=== PATIENT | male | born 1950 | race Caucasian/White ===

== ENCOUNTER → 2022-04-13 | Outpatient (CLI) | payer MEDICARE ==
--- NOTE | 2022-04-15 14:35 | CT ---
EXAMINATION TYPE: CT abdomen pelvis w con DATE OF EXAM: 04/13/2022 COMPARISON: None INDICATION: Malignant neoplasm of prostate DLP: 1179 mGycm, Automated exposure control for dose reduction was used. CONTRAST: 100 mL of Isovue 300. Study performed without Oral Contrast TECHNIQUE: Axial images were obtained from above the diaphragm to the pubic rami in the axial plane a t 5 mm thick sections. Reconstructed images are reviewed on the computer in the coronal plane. FINDINGS: Limited CT sections are obtained the lung bases. The lung bases are clear. CT ABDOMEN: Liver: Atelectasis is present within the medial right lobe liver. Spleen: Normal Pancreas: Normal Adrenal glands: The adrenal glands are normal. Gallbladder: Normal Kidneys: No masses are evident. No hydronephrosis is present. Small cortical renal cyst is on the l ateral mid left kidney. Delayed images were obtained through the kidneys, which remain unremarkable. Aorta: Vascular calcification is within the aorta. Inferior vena cava: Normal. CT PELVIS: Loops of bowel within the abdomen and pelvis are normal. The study is without oral contrast limit ing bowel evaluation. Appendix: Normal as visualized. Urinary bladder: Inferior impression from the enlarged prostate is present. The left seminal vesicle appears enlarged compared to the right. Genitourinary structures: Prostate is prominent and lobular mass extension into the seminal vesicles. This has mild inferior impression on the urinary bladder. Osseous structures: There is a 1.0 cm sclerotic area within the medial left iliac wing. This is adjac ent to a lytic lucency which is nonspecific. Facet degenerative changes are in the lower lumbar spine greater on the right. IMPRESSIONS: 1. Enlarged lobular prostate. Consider extension towards the seminal vesicles, greater on the left. 2. Sclerotic lesion adjacent simple appearing lytic area in the left medial iliac wing. Metastasis is not excluded. Additional areas suspicious for metastases are not identified.
== END | disposition home or self-care (01) ==
LOC: RADCTMAIN 17:32
PROVIDERS: ATTEND Urology
DX: C61 Malignant neoplasm of prostate (principal); M89.9 Disorder of bone, unspecified
CPT/HCPCS: 82565; 84520; 74177; 36415; Q9967

== ENCOUNTER → 2022-05-04 | Outpatient (CLI) | payer MEDICARE ==
--- NOTE | 2022-05-05 10:45 | NM ---
EXAMINATION TYPE: NM bone scan whole body DATE OF EXAM: 05/04/2022 COMPARISON: CT abdomen and pelvis 04/13/2022 HISTORY: Prostate cancer Delayed whole-body scanning was performed following the injection of 23.3 mCi Tc 99m MDP. Images acq uired 3.5 hours post injection. FINDINGS: There is intense abnormal uptake involving the cervical spine and lower lumbar spine. More mild to mo derate changes seen throughout the thoracic and lumbar spine which likely is degenerative. Abnormal uptake involving the knee and feet likely postarthritic. Remaining osseous structures demons trate no definite abnormal uptake. IMPRESSION: 1. Intense abnormal uptake involving the cervical spine with no x-ray correlation available. Given th e intensity of uptake recommend x-ray correlation to exclude possibility of metastases. 2. Intense abnormal uptake involving the lower lumbar spine. Likely in the basis of degenerative jeong ge relative to the recent CT scan
== END | disposition home or self-care (01) ==
LOC: RADNMMAIN 10:52
PROVIDERS: ATTEND Urology
DX: C61 Malignant neoplasm of prostate (principal)
CPT/HCPCS: 78306; A9503

== ENCOUNTER → 2022-05-17 | Outpatient (CLI) | payer MEDICARE ==
--- NOTE | 2022-05-18 14:02 | XR ---
Cervical spine Limited HISTORY: Prostate carcinoma, C 61, abnormal bone scan Correlation to bone scan 05/04/2022 There is reversal the normal cervical spinal lordosis loss of disc height is present at intervertebra l levels. There is hypertrophic change, sclerosis. Facet arthropathy changes are also present. Cervic al vertebral bodies show preserved height. Prevertebral soft tissues within normal limits. Soft tissu e calcifications may be vascular. IMPRESSION: Degenerative disc disease, facet arthropathy. Additional findings above. Metastasis to ce rvical spine is not suspected.
== END | disposition home or self-care (01) ==
LOC: RADXRMAIN 18:20
PROVIDERS: ATTEND Urology
DX: C61 Malignant neoplasm of prostate (principal); M47.812 Spondylosis without myelopathy or radiculopathy, cervical region; M50.30 Other cervical disc degeneration, unspecified cervical region
CPT/HCPCS: 72040

== ENCOUNTER → 2023-04-03 | Outpatient (CLI) | payer MEDICARE ==
--- NOTE | 2023-04-03 20:01 | MR ---
EXAMINATION TYPE: MR Prostate wo/w con DATE OF EXAM: 04/03/2023 9:42 AM COMPARISON: None. CLINICAL INDICATION:Male, 72 years old with history of C61; Increased PSA, hx of biopsy x 20 years ag o TECHNIQUE: Multi-planar, multi-sequence imaging of the pelvis is performed prior to and following the uncomplicated administration of bolus intravenous gadolinium. CONTRAST: 7.5 Gadavist Interpretive Criteria: PI-RADS v2.1 SERUM PSA: 33.1 on 03/25/2022. 18.5 on 01/24/2019. SURGICAL PATHOLOGY: No data available. FINDINGS: Prostatic dimensions: 4.8 x 4.1 x 3.0 cm. "Bullet" Volume:38.64 (PSA density=0.86 ng/mL/mL) CENTRAL GLAND (Central and Transition Zones/CZ+TZ): Multiple bilateral, heterogenous appearing hypertrophic stromal nodules, without suspicious lesion. ( PI-RADS 2) PERIPHERAL ZONE (PZ): Limited evaluation secondary to bowel gas in the rectum. Extruded right lateral BPH nodule. Bilateral linear, indistinct wedgelike areas of low ADC, and low T2 signal, No evidence of masslike a bnormality, or localized perfusional hypervascularity, to further suggest a focus of clinically signi ficant prostate cancer. (PI-RADS 2) SEMINAL VESICLES (SV): Symmetric and unremarkable. PERIPROSTATIC TISSUES: Unremarkable. LYMPH NODES: No enlarged pelvic lymph node. REMAINING PELVIS: Bladder wall is within normal limits given distention. No abnormal free or organized intrapelvic fluid collection. No pathologic bowel dilation or mural thickening. Bilateral fat containing inguinal hernias. OSSEOUS STRUCTURES: No suspicious osseous abnormality. IMPRESSION: 1. No specific features for high-risk prostate cancer. Maximum PI-RADS score: 2.
== END | disposition home or self-care (01) ==
LOC: RADMRIMAIN 08:41
PROVIDERS: ATTEND Radiology Radiation Oncology
DX: C61 Malignant neoplasm of prostate (principal)
CPT/HCPCS: 72197; A9585

== ENCOUNTER → 2023-05-05 | Outpatient (CLI) | payer MEDICARE ==
--- NOTE | 2023-05-07 11:31 | PE ---
EXAMINATION TYPE: PET CT fusion skull to thigh DATE OF EXAM: 05/05/2023 CLINICAL INDICATION:Male, 72 years old with history of C61; TECHNIQUE: Following the intravenous administration of 5.67 mCi of Ga-68 Illuccix (PSMA), whole bod y images are performed from the skull base to the midthigh. Images are reviewed on the computer in t he coronal, axial, and sagittal planes. Reconstructed rotating images are created on independent wor kstation and reviewed on the computer. A non-contrast CT is performed in conjunction with the PET s can. CT DLP: 651 mGycm, Automated exposure control for dose reduction was used. COMPARISON: CT 01/11/2022, PET/CT None, MRI 04/03/2023, nuclear bone scan 04/26/2022 FINDINGS: Mediastinal SUV mean is 0.56. Hepatic parenchyma SUV mean is 2.22. SKULL BASE AND NECK: No suspicious radiotracer activity. CHEST, MEDIASTINUM, AND HILAR REGION: No suspicious radiotracer activity. ABDOMEN AND PELVIS: No suspicious radiotracer activity. MUSCULOSKELETAL STRUCTURES: No suspicious radiotracer activity. OTHER CT: Atherosclerosis of the carotid bifurcations and arterial vasculature. Mild bilateral gyneco mastia changes. Mild to moderate coronary artery atherosclerosis. Hepatic cyst. Fat-containing buccal hernia. Scattered colonic diverticula. Fat-containing inguinal hernias. IMPRESSION: No focal radiotracer uptake within the prostate gland or throughout the exam. Nothing to suggest lakshmi gnancy at this time.
== END | disposition home or self-care (01) ==
LOC: RADPETMAIN 14:39
PROVIDERS: ATTEND Urology
DX: C61 Malignant neoplasm of prostate (principal)
CPT/HCPCS: 78815; A9596

== ENCOUNTER 2024-07-09 11:43 | Day surgery (SDC) | payer MEDICARE ==
[~2024-07-09 11:43] MED LIST: ALPRAZolam 0.25 MG TAB PO PRN; ALPRAZolam 0.5 MG TAB PO PRN; NITROGLYCERIN SL TABS 0.4 MG TAB SUBLINGUAL PRN
[2024-07-09] MEDS: ASPIRIN 325 MG TAB PO ONE (12:13)
[2024-07-09] MEDS: SODIUM CHLORIDE 0.9% 1,000 ML in EMPTY BAG 1 BAG IV SCH (12:13)
[2024-07-09] MEDS: ATORVASTATIN 80 MG TAB PO ONE (12:14)
[2024-07-09 12:19] LABS: Basophils # (A) 0.1 k/uL (0-0.2); Basophils % (A) 1 %; Eosinophils # (A) 0.5 k/uL (0-0.7); Eosinophils % (A) 6 %; HCT 38.6 % (39.0-53.0); HGB 12.4 gm/dL (13.0-17.5); Lymphocytes # (A) 2.1 k/uL (1.0-4.8); Lymphocytes % (A) 25 %; MCH 28.6 pg (25.0-35.0); MCHC 32.2 g/dL (31.0-37.0); MCV 88.8 fL (80.0-100.0); Monocytes # (A) 0.5 k/uL (0-1.0); Monocytes % (A) 6 %; Neutrophils # (A) 4.9 k/uL (1.3-7.7); Neutrophils % (A) 59 %; Platelet Count 346 k/uL (150-450); RBC 4.34 m/uL (4.30-5.90); RDW 14.7 % (11.5-15.5); WBC 8.2 k/uL (3.8-10.6)
[2024-07-09 12:27] VITALS: RESP 16; TEMP 98.5
[2024-07-09 12:45] LABS: African American GFR (CKD) >90 (>60 ml/min/1.73 sqM); Anion Gap 8 mmol/L; Blood Urea Nitrogen 20 mg/dL (9-20); Calcium 9.3 mg/dL (8.4-10.2); Carbon Dioxide 26 mmol/L (22-30); Chloride 107 mmol/L (98-107); Glucose 115 mg/dL (74-99); Non-African American GFR(CKD) 89 (>60 ml/min/1.73 sqM); Potassium 3.9 mmol/L (3.5-5.1); Sodium 141 mmol/L (137-145)
[2024-07-09] MEDS: SODIUM CHLORIDE 0.9% 1,000 ML IV ONE (12:46)
[2024-07-09] MEDS: HEPARIN SODIUM,PORCINE (1 ML) 2,500 UNIT in SODIUM CHLORIDE 0.9% 250 ML IRRIGATION PRN (12:47)
[2024-07-09] MEDS: HEPARIN SODIUM,PORCINE 10,000 UNIT in SODIUM CHLORIDE 0.9% 1,000 ML IRRIGATION PRN (12:47)
[2024-07-09] MEDS: fentaNYL (PF) 50 MCG/1 ML VIAL IVP ONE (12:57)
[2024-07-09] MEDS: MIDAZOLAM 2 MG/2 ML VIAL IVP ONE (12:57)
[2024-07-09] MEDS: LIDOCAINE 1% INJ 10MG/ML (20 ML MDV) SQ ONE (13:29)
[2024-07-09] MEDS: VERAPAMIL SYRINGE (5 MG/10 ML) INTRAARTER ONE (13:30)
[2024-07-09] MEDS: HEPARIN SODIUM 1,000 UN/ML (10ML VL) IVP ONE (13:33)
[2024-07-09] MEDS: CLOPIDOGREL 75 MG TAB PO ONE (13:47)
[2024-07-09] MEDS: NITROGLYCERIN 1000MCG/10ML SYRINGE INTRACORON ONE (13:51)
[2024-07-09] MEDS: IOPAMIDOL-370 100ML BTL INJ ONE ×2 (13:55→14:11)
[2024-07-09] MEDS ORDERED: RX INFO: IV CONTRAST WAS GIVEN 1 EACH MISC MISCELLANE PRN (14:21)
[2024-07-09] MEDS ORDERED: MAG HYDROX/AL HYDROX/SIMETH 30 ML CUP PO PRN (14:21)
[2024-07-09] MEDS ORDERED: ZOLPIDEM 5 MG TAB PO PRN (14:21)
[2024-07-09] MEDS ORDERED: ATROPINE SULFATE 0.1 MG/ML 10ML SYRINGE IV PRN (14:21)
--- NOTE | 2024-07-09 14:36 | P.PRCINT ---
Percutaneous Coronary Int. - Percutaneous Coronary Intervention Percutaneous Coronary Intervention: PROCEDURES PERFORMED: Left heart catheterization, bilateral coronary angiography, ultrasound guided arterial access, IVUS RCA/PLV, PCI PLV with a 2.5 x 15mm Xience LUZ, post dilated with a 2.5mm NC balloon INDICATION: Abnormal stress test, CAD by CTA, NYHA class 3 symptoms CONSENT:I have discussed the risks, benefits and alternative therapies for the above-mentioned procedure and for both sedation/analgesia as well as necessary blood product administration, if indicated, as they pertain to this patient. The patient has indicated understanding and acceptance of the risks and procedures discussed. PROCEDURE: After the risks, benefits and alternatives of the above mentioned procedure explained in detail with the patient, informed consent was obtained. Patient was taken to the catheterization lab and prepped and draped in usual fashion. Ultrasound guidance was used to assess for arterial access. 1% lidocaine was used to anesthetize the right radial artery. A 6-[place] sheath was placed in the right radial artery using modified Seldinger technique and ultrasound guidance. Left coronary angiography was performed with a 5-[place] JL 3.5 catheter and right coronary angiography was performed with a 5-[place] AR2 catheter in various views. A 5-[place] FR5 catheter was inserted into the left ventricle and pressure measurements were obtained. The decision was made to perform PCI of the PLV. A 6-[place] JL 0.75 guide was used to engage RCA. A 0.014 BMW wire was advanced in the distal PLV. Predilation was performed with a 2.0 x 8 mm balloon. Next intervascular ultrasound was performed which showed low calcium burden and appeared more fibrotic plaque. There was more diffuse proximal mid RCA disease however was 40-50% stenosis on the intervascular ultrasound. Predilation was performed with a 2.5 mm noncompliant balloon. Next a 2.5 x 15 mm Xience LUZ was placed in the mid PLV. Repeat intervascular ultrasound showed some mild underexpansion of the proximal portion of the stent and therefore repeat balloon angioplasty was performed with a 2.5 mm noncompliant balloon. Final angiogramas were performed. Preintervention there is 99% stenosis and AMBER 2 flow with some right to right collaterals and postintervention there was less than 10% stenosis with AMBER 3 flow. There is diffuse mid RCA 40-50% stenosis however no dissection noted on intravascular ultrasound and stable from pre intervention images. Therefore this was felt best treated medically. The right radial sheath was removed and a TR band was placed with hemostasis achieved. The patient tolerated the procedure well. Patient was transported back to the post catheterization holding area in stable condition. Conscious Sedation: Patient was monitored under the direct supervision of myself for conscious sedation using Versed and fentanyl for a total duration of 42 minutes HEMODYNAMICS: Ao: 134/71 LV: 122/3, LVEDP 11 SELECTIVE CORONARY ARTERIOGRAPHY: LEFT MAIN: The left main is a large caliber vessel which bifurcates into the LAD and circumflex. There is no significant stenosis. LEFT ANTERIOR DESCENDING CORONARY ARTERY: LAD is a large caliber vessel which wraps around to the apex. There is proximal to mid LAD 50% stenosis just after a high diagonal branch, mid LAD 20-30% stenosis. LEFT CIRCUMFLEX CORONARY ARTERY: Left circumflex is a moderate caliber vessel with 20-30% mid circumflex stenosis.. RIGHT CORONARY ARTERY: The right coronary artery is a moderate caliber vessel which gives off a PDA and PLV branch and is the dominant vessel. There is mid RCA 40-50% stenosis in a more focal mid PLV 99% stenosis. FINAL IMPRESSION: 1. CAD as described above including proximal LAD 50%, 20-30% mid LAD stenosis, 20-30% circumflex stenosis, 40-50% mid RCA stenosis, 99% PLV stenosis 2. S/p PCI PLV with a 2.5 x 15mm Xience LUZ, post dilated with a 2.5mm NC balloon 3. Normal left sided filling pressures PLAN: 1. Aggressive risk factor modification per most recent ACC/AHA guidelines. 2. Continue dual antiplatelets with aspirin and Plavix for 6 months.
[2024-07-09 17:27] VITALS: BP 113/61; PULSE 51
[2024-07-10] MEDS ORDERED: ATORVASTATIN 40 MG TAB PO SCH (09:00)
[2024-07-10] MEDS ORDERED: hydroCHLOROthiazide 25 MG TAB PO SCH (09:00)
[2024-07-10] MEDS ORDERED: lisinopriL 10 MG TAB PO SCH (09:00)
[2024-07-10] MEDS ORDERED: ASPIRIN 81 MG PO SCH (09:00)
[2024-07-10] MEDS ORDERED: CLOPIDOGREL 75 MG TAB PO SCH (09:00)
== END 2024-07-09 17:50 | disposition home or self-care (01) ==
LOC: CATHCVL 11:43
PROVIDERS: ATTEND Internal Medicine
DX: I25.10 Atherosclerotic heart disease of native coronary artery without angina pectoris (principal); I10 Essential (primary) hypertension; F17.210 Nicotine dependence, cigarettes, uncomplicated; I08.0 Rheumatic disorders of both mitral and aortic valves; E78.00 Pure hypercholesterolemia, unspecified; I71.40 Abdominal aortic aneurysm, without rupture, unspecified; Z82.3 Family history of stroke; Z95.5 Presence of coronary angioplasty implant and graft; Z79.82 Long term (current) use of aspirin; Z79.02 Long term (current) use of antithrombotics/antiplatelets; Z79.899 Other long term (current) drug therapy
CPT/HCPCS: 93458; 99152; 99153; C9600; 80048; 85025; 92978